=== PATIENT | male | born 1950 | race Caucasian/White ===

== ENCOUNTER 2019-08-02 11:29 | Emergency (ER) | payer MEDICARE, OTHER ==
[2019-08-02] MEDS ORDERED: Bupivacaine 0.5% 30 ML SDV INFILT ONE (11:34)
[2019-08-02] MEDS ORDERED: Bupivacaine 0.5%/EPINEPHrine 1:200,000 50 ML MDV ONE (11:40)
[2019-08-02] MEDS ORDERED: Bupivacaine 0.5% 10 ML SDV ONE (11:42)
[2019-08-02] MEDS ORDERED: Bupivacaine 0.5% 10 ML SDV INJECT ONE (11:51)
--- NOTE | 2019-08-02 12:12 | EDM.PDOC ---
ED HPI GENERAL MEDICAL PROBLEM - General Chief Complaint: Laceration Stated Complaint: R HAND MIDDLE FINGER INJURY Time Seen by Provider: 08/02/19 11:40 Source of Information: Reports: Patient History Limitations: Reports: No Limitations - History of Present Illness INITIAL COMMENTS - FREE TEXT/NARRATIVE: 68-year-old male crushed the small finger of his right hand. He arrived with a macerated crush injury with a dusky small finger which is numb and deformed. Onset: Sudden Duration: Minutes: Location: Reports: Upper Extremity, Right Associated Symptoms: Reports: No Other Symptoms - Related Data Allergies Allergy/AdvReac Type Severity Reaction Status Date / Time No Known Allergies Allergy Verified 02/21/18 10:05 Home Meds: Home Meds Aspirin [Adult Low Dose Aspirin EC] 81 mg PO DAILY 02/21/18 [History] Citalopram Hydrobromide [Celexa] 40 mg PO DAILY 02/21/18 [History] Naproxen [EC-Naprosyn] 500 mg PO BID 02/21/18 [History] Acetaminophen [Tylenol Extra Strength] 500 mg PO ASDIRECTED PRN 08/02/19 [ History] Levothyroxine Sodium [Euthyrox] 125 mcg PO DAILY 08/02/19 [History] Tamsulosin [Flomax] 0.4 mg PO DAILY 08/02/19 [History] ED ROS GENERAL - Review of Systems Review Of Systems: See Below Constitutional: Denies: Fever, Chills Respiratory: Denies: Shortness of Breath Cardiovascular: Denies: Chest Pain GI/Abdominal: Denies: Abdominal Pain, Nausea, Vomiting Skin: Reports: Other (Significant trauma to the small finger of the right hand) Neurological: Reports: Other (Complete numbness distally) ED EXAM, SKIN/RASH Exam: See Below Exam Limited By: No Limitations General Appearance: Alert, Anxious, Mild Distress Respiratory/Chest: No Respiratory Distress Cardiovascular: Regular Rate, Rhythm Extremities: Other (Exam is otherwise limited to the right hand. The small finger has a significant crush injury with open lacerations along the lateral aspect of the small finger over the middle phalanx, deformity, and cyanosis and lack of sensation to the distal finger) Course - Orders/Labs/Meds Orders: Active Orders 24 hr Category Date Time Status Fingers Fifth Digit Rt F9 [CR] Stat Exams 08/02/19 11:46 Taken Vancomycin 1 gm Med 08/02/19 14:30 Active Sodium Chloride 0.9% [Normal Saline] 250 ml IV ONETIME cefTRIAXone [Rocephin] 1 gm Med 08/02/19 14:00 Active Sodium Chloride 0.9% [Normal Saline] 50 ml IV ONETIME Medication Orders Ceftriaxone Sodium 1 gm/ (Sodium Chloride) 50 mls @ 100 mls/hr IV ONETIME ONE Stop: 08/02/19 14:29 Last Admin: 08/02/19 14:07 Dose: 100 mls/hr Vancomycin HCl 1 gm/ Sodium (Chloride) 250 mls @ 167 mls/hr IV ONETIME ONE Stop: 08/02/19 15:59 Last Admin: 08/02/19 14:15 Dose: 167 mls/hr Meds: Medications Generic Name Dose Route Start Last Admin Trade Name Freq PRN Reason Stop Dose Admin Ceftriaxone Sodium 1 gm/ 50 mls @ 100 mls/hr 08/02/19 14:00 08/02/19 14:07 Sodium Chloride IV 08/02/19 14:29 100 mls/hr ONETIME ONE Administration Vancomycin HCl 1 gm/ Sodium 250 mls @ 167 mls/hr 08/02/19 14:30 08/02/19 14: 15 Chloride IV 08/02/19 15:59 167 mls/hr ONETIME ONE Administration Discontinued Medications Generic Name Dose Route Start Last Admin Trade Name Freq PRN Reason Stop Dose Admin Bupivacaine HCl 30 ml 08/02/19 11:34 08/02/19 11:52 Marcaine 0.5% INFILT 08/02/19 11:35 Not Given ONETIME ONE Bupivacaine HCl Confirm 08/02/19 11:42 08/02/19 11:52 Sensorcaine-Mpf 0.5% Administered 08/02/19 11:43 Not Given Dose 20 ml .ROUTE .STK-MED ONE Bupivacaine HCl 10 ml 08/02/19 11:51 08/02/19 11:52 Sensorcaine-Mpf 0.5% INJECT 08/02/19 11:52 10 ml ONETIME ONE Administration Bupivacaine HCl/Epinephrine Bitart Confirm 08/02/19 11:40 08/02/19 11:44 Marcaine 0.5%/Epinephrine 1:200,000 Administered 08/02/19 11:41 Not Given Dose 50 ml .ROUTE .STK-MED ONE Cefazolin Sodium/Dextrose 1 gm 50 mls @ 100 mls/hr 08/02/19 12:45 08/02/19 12 :38 / Premix IV 08/02/19 13:14 100 mls/hr ONETIME ONE Administration - Re-Assessments/Exams Free Text/Narrative Re-Assessment/Exam: 08/02/19 13:19 An IV was started, 0.5% Marcaine was used to digitally block the small finger after sterilization. An x-ray was then obtained that showed a comminuted fracture of the middle phalanx. 08/02/19 13:51 Tetanus is current, patient was given 1 g of Ancef and consults were made to orthopedics in [facility]. After consults were finished with hand surgery and orthopedics, patient elected to have an amputation of the finger. Dr. Bone in [place] kindly accepted the patient for transfer. He was sent by ambulance because no other form of transportation was available and he needed IV antibiotics in route. An additional 1 g of Rocephin and 1 g of vancomycin was given and an additional bolus of 0.5% Marcaine was blocked before the hand was wrapped with a wet-to-dry dressing. Departure - Departure Time of Disposition: 02:22 Disposition: DC/Tfer to Other Clinical Impression: Crushing injury of right little finger Qualifiers: Encounter type: initial encounter Qualified Code(s): S67.196A - Crushing injury of right little finger, initial encounter - Discharge Information Referrals: PCP,None [Primary Care Provider] - Forms: ED Department Discharge Care Plan Goals: Patient will be sent to [facility] for orthopedic surgical repair with amputation of the finger injury. Sepsis Event Note - Focused Exam Date Exam was Performed: 08/02/19 Time Exam was Performed: 14:21 - My Orders Last 24 Hours: My Active Orders 08/02/19 11:46 Fingers Fifth Digit Rt F9 [CR] Stat 08/02/19 14:00 cefTRIAXone [Rocephin] 1 gm Sodium Chloride 0.9% [Normal Saline] 50 ml IV ONETIME 08/02/19 14:30 Vancomycin 1 gm Sodium Chloride 0.9% [Normal Saline] 250 ml IV ONETIME - Assessment/Plan Last 24 Hours: My Active Orders 08/02/19 11:46 Fingers Fifth Digit Rt F9 [CR] Stat 08/02/19 14:00 cefTRIAXone [Rocephin] 1 gm Sodium Chloride 0.9% [Normal Saline] 50 ml IV ONETIME 08/02/19 14:30 Vancomycin 1 gm Sodium Chloride 0.9% [Normal Saline] 250 ml IV ONETIME
[2019-08-02] MEDS ORDERED: ceFAZolin 1 GM in Sodium Chloride 0.9% 50 ML IV ONE (12:27)
[2019-08-02] MEDS ORDERED: ceFAZolin 1 GM in Premix Bag 1 BAG IV ONE (12:45)
[2019-08-02] MEDS ORDERED: cefTRIAXone 1 GM in Sodium Chloride 0.9% 50 ML IV ONE ×2 (13:48→14:00)
--- NOTE | 2019-08-04 10:31 | CR ---
Fingers Fifth Digit Rt F9 CLINICAL HISTORY: Crush injury FINDINGS: Patient is a comminuted displaced fracture of the middle phalanx with palmar angulation of the distal finger. There is some mild irregularity of the distal aspect of the proximal phalanx. Nondisplaced fracture not excluded IMPRESSION: Comminuted fracture fifth middle phalanx. Questionable irregularity of the distal aspect of the proximal phalanx. This may be better seen on short-term follow-up
== END 2019-08-02 14:23 | disposition other institution (70) ==
LOC: JP.ED 11:29
DX: S67.196A Crushing injury of right little finger, initial encounter (principal); Z79.82 Long term (current) use of aspirin; Z79.899 Other long term (current) drug therapy; W23.0XXA Caught, crushed, jammed, or pinched between moving objects, initial encounter
CPT/HCPCS: 64450; 73140; 96365; 96367; 96375; 99284; J0690; J0696; J3370; J3490; J7050

== ENCOUNTER 2019-12-05 15:41 | Emergency (ER) | payer MEDICARE, OTHER ==
[2019-12-05] MEDS ORDERED: Sodium Chloride 0.9% 10 ML Syringe FLUSH PRN (16:57)
--- NOTE | 2019-12-05 16:59 | EDM.PDOC ---
ED HPI GENERAL MEDICAL PROBLEM - General Chief Complaint: General Stated Complaint: MEDICAL Time Seen by Provider: 12/05/19 16:35 Source of Information: Reports: Patient, Family, RN Notes Reviewed History Limitations: Reports: No Limitations - History of Present Illness INITIAL COMMENTS - FREE TEXT/NARRATIVE: Mitch is an alert and oriented 69 year old male presenting with complaints of losing weight, generalized weakness, no appetite, muscle aches, lack of energy for the past 2 weeks. He also reports increased thirst and urination. He has been receiving immunotherapy with last dose of keytruda on 11/26/2019. He denies fever, chills, vomiting, diarrhea or other concerns. Unsure of COVID19 exposure. He denies tobacco, alcohol or illicit drug use. general arthritic pain Pain Score (Numeric/FACES): 4 - Related Data Allergies Allergy/AdvReac Type Severity Reaction Status Date / Time No Known Allergies Allergy Verified 12/05/19 15:59 Home Meds: Home Meds Aspirin [Adult Low Dose Aspirin EC] 325 mg PO TID 02/21/18 [History] Citalopram Hydrobromide [Celexa] 20 mg PO DAILY 02/21/18 [History] Acetaminophen [Tylenol Extra Strength] 500 mg PO ASDIRECTED PRN 08/02/19 [History] Levothyroxine Sodium [Euthyrox] 125 mcg PO DAILY 08/02/19 [History] Tamsulosin [Flomax] 0.4 mg PO DAILY 08/02/19 [History] Pyridoxine HCl [Vitamin B-6] 50 mg PO DAILY 12/05/19 [History] Sennosides [Senna] 8.6 mg PO BID 12/05/19 [History] Tacrolimus [Protopic 0.1% Oint] 1 applic TOP BID 12/05/19 [History] Triamcinolone Acetonide [Kenalog 0.1% Crm] 0 gm TOP ASDIRECTED PRN 12/05/19 [History] diphenhydrAMINE [Benadryl] 25 mg PO BEDTIME 12/05/19 [History] Past Medical History Genitourinary History: Reports: BPH, Other (See Below) Other Genitourinary History: November reported kidney function down Musculoskeletal History: Reports: Arthritis, Fibromyalgia, Osteoarthritis Neurological History: Reports: Other (See Below) Other Neuro History: mets to the brain, PET scan week of 11/27 'good', mri of head this week was clear Psychiatric History: Reports: Anxiety Endocrine/Metabolic History: Reports: Hypothyroidism Oncologic (Cancer) History: Reports: Malignant Melanoma, Metastatic, Squamous Cell Carcinoma Other Oncologic History: 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 Dermatologic History: Reports: Melanoma, Other (See Below) Other Dermatologic History: 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 - Past Surgical History Male Surgical History: Reports: None Endocrine Surgical History: Reports: None Neurological Surgical History: Reports: None Musculoskeletal Surgical History: Reports: Hip Replacement, Other (See Below) Other Musculoskeletal Surgeries/Procedures:: 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 ) Skin: Reports: No Symptoms Neurological: Reports: No Symptoms Psychiatric: Reports: No Symptoms Hematologic/Lymphatic: Reports: No Symptoms Immunologic: Reports: No Symptoms ED EXAM, GENERAL - Physical Exam Exam: See Below Exam Limited By: No Limitations General Appearance: Alert, WD/WN, No Apparent Distress Eye Exam: Bilateral Eye: EOMI, Normal Inspection, PERRL Ears: Normal External Exam, Normal Canal, Hearing Grossly Normal, Normal TMs Throat/Mouth: Normal Inspection, Normal Lips, Normal Teeth, Normal Gums, Normal Oropharynx, Normal Voice, No Airway Compromise Head: Atraumatic, Normocephalic Neck: Normal Inspection, Supple, Non-Tender, Full Range of Motion. No: Lymphadenopathy (R), Lymphadenopathy (L) Respiratory/Chest: No Respiratory Distress, Lungs Clear, Normal Breath Sounds, No Accessory Muscle Use, Chest Non-Tender. No: Crackles, Rales, Rhonchi, Wheezing Cardiovascular: Normal Peripheral Pulses, Regular Rate, Rhythm, No Edema, No Gallop, No Murmur, No Rub Peripheral Pulses: 2+: Radial (L), Radial (R) GI/Abdominal: Normal Bowel Sounds, Soft, Non-Tender, No Organomegaly, No D istention, No Mass. No: Guarding, Rigid, Rebound Back Exam: Normal Inspection, Full Range of Motion. No: CVA Tenderness (R), CVA Tenderness (L) Extremities: Normal Inspection, Normal Range of Motion, Non-Tender, No Pedal Edema, Normal Capillary Refill Neurological: Alert, Oriented, CN II-XII Intact, Normal Cognition, Normal Gait, Normal Reflexes, No Motor/Sensory Deficits Psychiatric: Normal Affect, Normal Mood Skin Exam: Warm, Dry, Intact, Normal Color, No Rash Lymphatic: No Adenopathy Course - Vital Signs Last Recorded V/S: Last Vital Signs Temp 36.2 C 12/05/19 15:50 Pulse 71 12/05/19 15:50 Resp 13 12/05/19 15:50 BP 162/88 H 12/05/19 15:50 Pulse Ox 97 12/05/19 15:50 - Orders/Labs/Meds Orders: Active Orders 24 hr Category Date Time Status CORONAVIRUS COVID-19, MELECIO Routine Lab 12/05/19 18:39 Received CULTURE STREP A CONFIRMATION [RM] Stat Lab 12/05/19 18:16 Results CULTURE URINE [RM] Stat Lab 12/05/19 22:05 Received STREP SCRN A RAPID W CULT CONF [RM] Stat Lab 12/05/19 18:16 Results Isolation [COMM] Routine Oth 12/05/19 16:58 Ordered Saline Lock Insert [OM.PC] Routine Oth 12/05/19 16:57 Ordered Labs: Laboratory Tests 12/05/19 Range/Units 18:16 Urine Color Yellow (YELLOW) Urine Appearance Slightly cloudy A (CLEAR) Urine pH 5.5 (5.0-8.0) Ur Specific [place] 1.020 (1.008-1.030) Urine Protein Trace H (NEGATIVE) mg/dL Urine Glucose (UA) Negative (NEGATIVE) mg/dL Urine Ketones Negative (NEGATIVE) mg/dL Urine Occult Blood Small H (NEGATIVE) Urine Nitrite Negative (NEGATIVE) Urine Bilirubin Negative (NEGATIVE) Urine Urobilinogen 0.2 (0.2-1.0) EU/dL Ur Leukocyte Esterase Small H (NEGATIVE) Urine RBC 5-10 H (0-5) Urine WBC 10-20 H (0-5) Ur Epithelial Cells Few Amorphous Sediment Not seen Urine Bacteria Moderate Urine Mucus Moderate Urine Other UA reviewed, no nitrites present. We will culture urine. Strep negative Influenza A/B negative Meds: Medications Discontinued Medications Generic Name Dose Route Start Last Admin Trade Name Eliana PRN Reason Stop Dose Admin Sodium Chloride 1,000 mls @ 999 mls/hr 12/05/19 17:00 12/05/19 18:01 Normal Saline IV 500 mls/hr ASDIRECTED PHILL Administration Lactated Ringer's 1,000 mls @ 999 mls/hr 12/05/19 17:55 12/05/19 19:03 Ringers, Lactated IV 12/05/19 18:55 999 mls/hr BOLUS ONE Administration Sodium Chloride 10 ml 12/05/19 16:57 12/05/19 19:03 Saline Flush FLUSH 10 ml ASDIRECTED PRN Administration Keep Vein Open - Re-Assessments/Exams Free Text/Narrative Re-Assessment/Exam: 12/05/19 17:40 Patient lab work and status reviewed with Dr. Pelletier. We will hydrate with two liters of IV fluids. 12/05/19 19:39 Patient tolerating fluids well. 12/05/19 20:13 Patient reports he feels better. 2L of fluid infused, tolerated well. Departure - Departure Time of Disposition: 20:14 Disposition: Home, Self-Care 01 Clinical Impression: Dehydration, Side effect of medication - Discharge Information *PRESCRIPTION DRUG MONITORING PROGRAM REVIEWED*: No *COPY OF PRESCRIPTION DRUG MONITORING REPORT IN PATIENT ETELVINA: No Instructions: Dehydration, Adult Referrals: Janell Coleman PA-C [Primary Care Provider] - Forms: ED Department Discharge Additional Instructions: You have been treated for dehydration and most likely side effects of Keytruda. Keep hydrated, water and gatorade. Follow up with primary on Sunday for repeat of renal function. COVID19 test pending, you will be notified of results. Return for any worsening, issues or concerns. Sepsis Event Note (ED) - Evaluation Sepsis Screening Result: No Definite Risk - Focused Exam Vital Signs: Vital Signs Temp Pulse Resp BP Pulse Ox 12/05/19 15:50 36.2 C 71 13 162/88 H 97 - My Orders Last 24 Hours: My Active Orders 12/05/19 16:57 Saline Lock Insert [OM.PC] Routine 12/05/19 16:58 Isolation [COMM] Routine 12/05/19 18:16 CULTURE STREP A CONFIRMATION [RM] Stat STREP SCRN A RAPID W CULT CONF [RM] Stat 12/05/19 18:39 CORONAVIRUS COVID-19, MELECIO Routine 12/05/19 22:05 CULTURE URINE [RM] Stat - Assessment/Plan Last 24 Hours: My Active Orders 12/05/19 16:57 Saline Lock Insert [OM.PC] Routine 12/05/19 16:58 Isolation [COMM] Routine 12/05/19 18:16 CULTURE STREP A CONFIRMATION [RM] Stat STREP SCRN A RAPID W CULT CONF [RM] Stat 12/05/19 18:39 CORONAVIRUS COVID-19, MELECIO Routine 12/05/19 22:05 CULTURE URINE [RM] Stat Assessment:: Dehydration Side effect of medication (keytruda) Plan: Patient evaluated and treated for dehydration and most likely side effects of Keytruda. Keep hydrated, water and gatorade. Follow up with primary on Sunday for repeat of renal function. COVID19 test pending, you will be notified of results. Return for any worsening, issues or concerns. Urine culture pending.
[2019-12-05] MEDS ORDERED: Sodium Chloride 0.9% 1,000 ML IV SCH (17:00)
[2019-12-05] MEDS ORDERED: Lactated Ringers 1,000 ML IV ONE (17:55)
== END 2019-12-05 20:25 | disposition home or self-care (01) ==
LOC: JP.ED 15:41
DX: E86.0 Dehydration (principal); E03.9 Hypothyroidism, unspecified; F41.9 Anxiety disorder, unspecified; M19.90 Unspecified osteoarthritis, unspecified site; Z79.82 Long term (current) use of aspirin; Z98.890 Other specified postprocedural states; Z79.899 Other long term (current) drug therapy; Z20.828 Contact with and (suspected) exposure to other viral communicable diseases; T50.Z95A Adverse effect of other vaccines and biological substances, initial encounter
CPT/HCPCS: 81001; 87081; 87086; 87804; 87880; 96360; 96361; 99283; 99284; J7030; J7120; U0002

== ENCOUNTER 2020-09-19 12:26 | Emergency (ER) | payer MEDICARE, OTHER ==
[2020-09-19] MEDS ORDERED: Alum Hydrox/Mag Hydrox/Simeth 15 ML, Lidocaine 2% 15 ML PO ONE ×2 (13:02)
--- NOTE | 2020-09-19 13:08 | EDM.PDOC ---
ED HPI GENERAL MEDICAL PROBLEM - General Chief Complaint: Abdominal Pain Stated Complaint: STOMACH PAIN FOR PAST SVERAL DAYS WORSE TODAT Time Seen by Provider: 09/19/20 12:50 Source of Information: Reports: Patient, Old Records, RN History Limitations: Reports: No Limitations - History of Present Illness INITIAL COMMENTS - FREE TEXT/NARRATIVE: 70 yo male presents with epigastric pain progressive over the past several days. No self tx. Has not been seen before today. No melena or hematochezia. No vomiting or nausea. Feels bloated subjectively. Here with . No hx of the s freedom. Onset: Gradual Onset Date: 09/14/20 Duration: Day(s):, Getting Worse Location: Reports: Abdomen Quality: Reports: Burning Severity: Moderate Improves with: Reports: None Worsens with: Reports: Other (time) Context: Reports: Other (See HPI) Associated Symptoms: Reports: No Other Symptoms. Denies: Fever/Chills, Nausea/Vomiting Treatments [employer]: Reports: Other (see below) (none) - Related Data Allergies Allergy/AdvReac Type Severity Reaction Status Date / Time No Known Allergies Allergy Verified 09/19/20 13:21 Home Meds: Home Meds Citalopram Hydrobromide [Celexa] 40 mg PO DAILY 02/21/18 [History] Tamsulosin [Flomax] 0.4 mg PO DAILY 08/02/19 [History] Pyridoxine HCl [Vitamin B-6] 50 mg PO DAILY 12/05/19 [History] Folic Acid 1 tab PO DAILY 09/19/20 [History] Levothyroxine 1 tab PO DAILY 09/19/20 [History] Methotrexate 8 tab PO WEEKLY 09/19/20 [History] Omeprazole 40 mg PO BEDTIME #30 cap.sr 09/19/20 [Rx] Past Medical History Genitourinary History: Reports: BPH, Other (See Below) Other Genitourinary History: November reported kidney function down Musculoskeletal History: Reports: Arthritis, Fibromyalgia, Osteoarthritis Neurological History: Reports: Other (See Below) Other Neuro History: mets to the brain, PET scan week of 11/27 'good', mri of head this week was clear Psychiatric History: Reports: Anxiety Endocrine/Metabolic History: Reports: Hypothyroidism Oncologic (Cancer) History: Reports: Malignant Melanoma, Metastatic, Squamous Cell Carcinoma Other Oncologic History: 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 Dermatologic History: Reports: Melanoma, Other (See Below) Other Dermatologic History: 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 - Past Surgical History Male Surgical History: Reports: None Endocrine Surgical History: Reports: None Neurological Surgical History: Reports: None Musculoskeletal Surgical History: Reports: Hip Replacement, Other (See Below) Other Musculoskeletal Surgeries/Procedures:: 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 Denies: Black Stool, Bloody Stool, Constipation, Diarrhea, Hematemesis, Hematochezia, Melena, Nausea, Vomiting : Reports: No Symptoms Musculoskeletal: Reports: No Symptoms Skin: Reports: No Symptoms Neurological: Reports: No Symptoms ED EXAM, GI/ABD - Physical Exam Exam: See Below Exam Limited By: No Limitations General Appearance: Alert, WD/WN, No Apparent Distress Eyes: Bilateral: Normal Appearance Ears: Normal External Exam, Normal Canal, Hearing Grossly Normal Nose: Normal Inspection, No Blood Throat/Mouth: Normal Inspection, Normal Lips, Normal Oropharynx, Normal Voice, No Airway Compromise Head: Atraumatic, Normocephalic Neck: Normal Inspection Respiratory/Chest: No Respiratory Distress, Lungs Clear, Normal Breath Sounds, No Accessory Muscle Use Cardiovascular: Regular Rate, Rhythm, No Edema GI/Abdominal Exam: Normal Bowel Sounds, Soft, No Distention, Tender (epigastrium only). No: Non-Tender, Distended, Guarding, Rigid, Rebound Extremities: Normal Inspection, Normal Range of Motion, Non-Tender, No Pedal Edema Neurological: Alert, Oriented, CN II-XII Intact, Normal Cognition, No Motor/Sensory Deficits Psychiatric: Normal Affect, Normal Mood Skin Exam: Warm, Dry, Intact, Normal Color, No Rash Course - Vital Signs Last Recorded V/S: Last Vital Signs Temp 36.4 C 09/19/20 13:35 Pulse 89 09/19/20 13:35 Resp 14 09/19/20 13:35 BP 132/80 09/19/20 13:35 Pulse Ox 97 09/19/20 13:35 - Orders/Labs/Meds Labs: Laboratory Tests 09/19/20 09/19/20 09/19/20 Range/Units 13:10 13:10 13:10 WBC 13.1 H (4.5-11.0) K/uL RBC 4.31 (4.30-5.90) M/uL Hgb 13.7 (12.0-15.0) g/dL Hct 40.9 (40.0-54.0) % MCV 95 (80-98) fL MCH 32 H (27-31) pg MCHC 34 (32-36) % Plt Count 260 (150-400) K/uL Sodium 139 L (140-148) mmol/L Potassium 4.2 (3.6-5.2) mmol/L Chloride 100 (100-108) mmol/L Carbon Dioxide 27 (21-32) mmol/L Anion Gap 16.2 H (5.0-14.0) mmol/L BUN 29 H (7-18) mg/dL Creatinine 1.3 (0.8-1.3) mg/dL Est Cr Clr Drug Dosing TNP Estimated GFR (MDRD) 54 L (>60) Glucose 103 (74-106) mg/dL Calcium 8.7 (8.5-10.1) mg/dL Total Bilirubin 0.5 (0.2-1.0) mg/dL AST 21 (15-37) U/L ALT 32 (12-78) U/L Alkaline Phosphatase 81 (46-116) U/L Total Protein 6.4 (6.4-8.2) g/dL Albumin 3.2 L (3.4-5.0) g/dL Globulin 3.2 (2.3-3.5) g/dL Albumin/Globulin Ratio 1.0 L (1.2-2.2) Lipase 182 (73-393) U/L Meds: Medications Discontinued Medications Generic Name Dose Route Start Last Admin Trade Name Freq PRN Reason Stop Dose Admin Al Hydroxide/Mg Hydroxide 15 0 ml 09/19/20 13:02 09/19/20 13:39 ml/ Lidocaine HCl 15 ml PO 09/19/20 13:03 30 ml ONETIME ONE Administration Simethicone 160 mg 09/19/20 13:10 09/19/20 13:39 Simethicone 80 Mg Tab.Chew PO 09/19/20 13:11 160 mg ONETIME ONE Administration - Re-Assessments/Exams Free Text/Narrative Re-Assessment/Exam: 09/19/20 13:58 Feeling better after medication here in the ER. Departure - Departure Time of Disposition: 14:05 Disposition: Home, Self-Care 01 Condition: Fair Clinical Impression: Gastritis Qualifiers: Gastritis type: unspecified gastritis Chronicity: acute Gastritis bleeding: without bleeding Qualified Code(s): K29.00 - Acute gastritis without bleeding - Discharge Information Referrals: Janell Coleman PA-C [Primary Care Provider] - Forms: ED Department Discharge Additional Instructions: Increase your omeprazole to 40 mg daily. Take every day. Add an antacid like Maalox 30 ml after meals and at bedtime until your pain stays away. Use acetaminophen for pain relief. Avoid: aspirin, ibuprofen, Aleve, alcohol, carbonated beverages and limit caffeine intake. Recheck with your provider, return if worse. Sepsis Event Note (ED) - Focused Exam Vital Signs: Vital Signs Temp Pulse Resp BP Pulse Ox 09/19/20 13:35 36.4 C 89 14 132/80 97
[2020-09-19] MEDS ORDERED: Simethicone 80 MG Tab.Chew PO ONE (13:10)
== END 2020-09-19 14:29 | disposition home or self-care (01) ==
LOC: JP.ED 12:26
DX: K29.00 Acute gastritis without bleeding (principal); E03.9 Hypothyroidism, unspecified; Z79.899 Other long term (current) drug therapy
CPT/HCPCS: 36415; 80053; 83690; 85027; 99283; 99284; A9270

== ENCOUNTER 2020-11-05 09:23 | Day surgery (SDC) | payer MEDICARE, OTHER ==
[~2020-11-05 09:23] MED LIST: Dextrose 5%-Lactated Ringers 1,000 ML IV SCH
[2020-11-05] MEDS ORDERED: Sodium Chloride 0.9% 1,000 ML IV SCH (10:00)
[2020-11-05] MEDS ORDERED: Propofol 200 MG/20 ML SDV ONE (10:53)
[2020-11-05] MEDS ORDERED: fentaNYL 100 MCG/2 ML SDV ONE (10:53)
[2020-11-05] MEDS ORDERED: Midazolam 1 MG/ML 2 ML SDV ONE (10:53)
--- NOTE | 2020-11-05 14:22 | OR ---
DATE OF PROCEDURE: 11/05/2020 SURGEON: Isacc Bal MD PROCEDURES: 1. Esophagogastroduodenoscopy. 2. Colonoscopy. FINDINGS: 1. 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 2. Partial obstruction of the duodenum due to the aforementioned lesion. 3. Very mild inflammation in colon (biopsied in ascending colon and rectum via random biopsies for pathological purposes and evaluation for colitis). 4. Hiatal hernia of approximately 4 cm, asymptomatic. COMPLICATIONS: None. MANAGER UNIVERSITY: None. PREOPERATIVE DIAGNOSES: 1. Abdominal pain. 2. Early satiety. 3. History of advanced melanoma. POSTOPERATIVE DIAGNOSES: 1. Abdominal pain. 2. Early satiety. 3. History of advanced melanoma. RISKS: Risks, benefits, alternatives, and limitations including but not limited to infection, bleeding, perforation, and false positives and false negatives were explained to the patient who wished to proceed. PROCEDURE IN DETAIL: The patient was placed in left lateral decubitus position. The EGD scope was introduced and advanced atraumatically into the first part of the duodenum. In the duodenal bulb proper, there was an obstructive type lesion, which was noted to be circumferential. There was some retained food or food products in this area. This appeared to narrow the lumen to approximately 50%. The scope could be passed through this and was, and no distal duodenal lesions were noted. This was then brought back, and this lesion was biopsied x8. There was no active bleeding associated with this. The scope was then brought back within the stomach. There was no gastritis or ulceration. The patient was noted to have a 4 cm hiatal hernia. The esophagus was also normal. The air was removed from the stomach. Digital rectal exam was performed next. No abnormalities noted. The scope was introduced and advanced atraumatically to the ileocecal valve. A photo was taken of the appendiceal orifice. The scope was brought back to the ascending, transverse, and descending colon and retroflexed. The patient had very mild inflammation. Due to the concern for colitis, random biopsies were performed of the ascending colon and rectum. No abnormalities on retroflexion. Greater than 8 minutes was spent removing the scope. The prep was acceptable with approximately 90% of luminal surface. Isacc Bal MD /[id number]
== END 2020-11-05 14:49 | disposition home or self-care (01) ==
LOC: JP.SDS 09:23
PROVIDERS: ATTEND Surgery
DX: K26.9 Duodenal ulcer, unspecified as acute or chronic, without hemorrhage or perforation (principal); K44.9 Diaphragmatic hernia without obstruction or gangrene; K31.89 Other diseases of stomach and duodenum; I10 Essential (primary) hypertension; K52.9 Noninfective gastroenteritis and colitis, unspecified; C79.31 Secondary malignant neoplasm of brain; Z85.820 Personal history of malignant melanoma of skin
CPT/HCPCS: 43239; 45380; J2250; J2704; J3010; J7030

== ENCOUNTER 2024-02-05 22:06 | Emergency (ER) | payer MEDICARE, OTHER ==
[2024-02-05 22:40] LABS: BASOPHILS ABSOLUTE AUTO 0.05 K/uL (0.00-0.10); BASOPHILS PERCENT AUTO 0.6 % (0.1-1.3); EOSINOPHILS ABSOLUTE AUTO 0.16 K/uL (0.00-0.40); HEMATOCRIT 43.6 % (38.4-49.7); HEMOGLOBIN 15.1 g/dL (12.9-16.9); IMMATURE GRAN ABSOLUTE AUTO 0.04 K/uL (0.00-0.23); IMMATURE GRAN PERCENT AUTO 0.5 % (0.0-0.7); LYMPHOCYTES ABSOLUTE AUTO 1.76 K/uL (0.8-3.3); LYMPHOCYTES PERCENT AUTO 22.2 % (11.4-47.7); MEAN CORPUSCULAR HEMOGLOBIN 28.7 pg (31.6-35.5); MEAN CORPUSCULAR HGB CONC 34.6 g/dL (31.6-35.5); MEAN CORPUSCULAR VOLUME 82.9 fL (81.4-99.0); MONOCYTES ABSOLUTE AUTO 0.81 K/uL (0.20-0.90); MONOCYTES PERCENT AUTO 10.2 % (3.3-12.6); NEUTROPHILS ABSOLUTE AUTO 5.12 K/uL (1.0-7.6); NEUTROPHILS PERCENT AUTO 64.5 % (40.0-78.1); PLATELET COUNT,PLT 202 K/uL (130-375); RED BLOOD CELL COUNT 5.26 M/uL (4.14-5.76); WHITE BLOOD CELL COUNT,WBC 7.9 K/uL (3.2-11.0)
[2024-02-05] MEDS: Tranexamic Acid 1,000 MG/10 ML Vial TOP ONE (22:43)
== END 2024-02-05 23:12 | disposition home or self-care (01) ==
LOC: JP.ED 22:06
DX: R04.0 Epistaxis (principal); Z79.899 Other long term (current) drug therapy
CPT/HCPCS: 30903; 36415; 85025; 99283; 99283-25

== ENCOUNTER 2024-02-07 09:35 | Emergency (ER) | payer MEDICARE, OTHER ==
[2024-02-07] MEDS: Oxymetazoline 0.05% Nasal Spray 30 ML Bottle NAS ONE (10:40)
== END 2024-02-07 10:47 | disposition home or self-care (01) ==
LOC: JP.ED 09:35
DX: Z48.00 Encounter for change or removal of nonsurgical wound dressing (principal); E03.9 Hypothyroidism, unspecified; I25.2 Old myocardial infarction; Z79.899 Other long term (current) drug therapy; Z79.02 Long term (current) use of antithrombotics/antiplatelets
CPT/HCPCS: 99282; A9270

== ENCOUNTER 2025-02-07 18:36 | Emergency (ER) | payer MEDICARE, OTHER ==
[2025-02-07] MEDS: Bacitracin Oint 1 GM U/D Packet TOP ONE (19:55)
== END 2025-02-07 20:30 | disposition home or self-care (01) ==
LOC: JP.ED 18:36
DX: S60.453A Superficial foreign body of left middle finger, initial encounter (principal); E03.9 Hypothyroidism, unspecified; I25.2 Old myocardial infarction; Z79.899 Other long term (current) drug therapy; Z79.890 Hormone replacement therapy; W45.8XXA Other foreign body or object entering through skin, initial encounter
CPT/HCPCS: 99283; J2003; 99282